=== PATIENT | male | born 1955 | race Caucasian/White ===

== ENCOUNTER 2017-10-07 14:31 | Emergency (ER) | payer OTHER ==
[~2017-10-07] VITALS: Ht 170.2 cm; Wt 97.0 kg
[~2017-10-07 14:31] MED LIST: HYDR12.56 PO; LORT5TAB PO; PENI500T PO
[2017-10-07 14:38] VITALS: BP 171/83; PULSE 73; RESP 16; TEMP 97.9; O2SAT 95
[2017-10-07] MEDS ORDERED: BP med PO (14:53)
[2017-10-07] MEDS ORDERED: KETOROLAC TROMETHAMINE 60 MG/2 ML (IM) VIAL IM ONE (15:15)
[2017-10-07 16:18] VITALS: RESP 16
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
== END 2017-10-07 17:25 | disposition home or self-care (01) ==
LOC: PHEFT 14:31
DX: S83.92XA Sprain of unspecified site of left knee, initial encounter (principal); S90.32XA Contusion of left foot, initial encounter; I10 Essential (primary) hypertension; W19.XXXA Unspecified fall, initial encounter; Y93.55 Activity, bike riding; Z96.652 Presence of left artificial knee joint
CPT/HCPCS: 73564; 73650; 96372; 99284; J1885